=== PATIENT | female | born 1995 | race Caucasian/White ===

== ENCOUNTER 2017-07-26 12:34 | Emergency (ER) | payer MEDICAID ==
[~2017-07-26] VITALS: Ht 165.1 cm; Wt 61.4 kg
[~2017-07-26 12:34] MED LIST: CLON-528 PO; CLON0.5T23 PO; GUAI600T45 PO; HYDR-569 PO; MELA1TAB11 PO; ZOF4T PO
[2017-07-26 12:39] VITALS: BP 127/66
[2017-07-26] MEDS ORDERED: LIDOcaine 4% LTA kit 4ml solution TP ONE ×2 (14:00→14:15)
[2017-07-26] MEDS ORDERED: LIDOcaine/epinephrine TOPICAL 5 ML BTL TOP ONE (14:20)
[2017-07-26] MEDS ORDERED: acetaminophen 325mg tablet PO ONE (15:10)
== END 2017-07-26 15:36 | disposition home or self-care (01) ==
LOC: ER 12:34
DX: R04.0 Epistaxis (principal); Z88.5 Allergy status to narcotic agent; Z79.899 Other long term (current) drug therapy
CPT/HCPCS: 99283; J2001

== ENCOUNTER 2017-09-26 13:58 | Emergency (ER) | payer MEDICAID ==
[~2017-09-26] VITALS: Ht 165.1 cm; Wt 61.5 kg
[2017-09-26 14:04] VITALS: BP 113/70
[2017-09-26] MEDS ORDERED: ketorolac tromethamine 15mg/ml inj. IM ONE (14:10)
[2017-09-26] MEDS ORDERED: diazepam 5mg tablet PO ONE (14:10)
[2017-09-26] MEDS ORDERED: METH-360 PO (14:13)
[2017-09-26] MEDS ORDERED: NAPR-56 PO (14:13)
== END 2017-09-26 14:37 | disposition home or self-care (01) ==
LOC: ER 13:59
DX: S29.012A Strain of muscle and tendon of back wall of thorax, initial encounter (principal); Z88.5 Allergy status to narcotic agent; Z79.899 Other long term (current) drug therapy; X58.XXXA Exposure to other specified factors, initial encounter; Y93.89 Activity, other specified; Y92.89 Other specified places as the place of occurrence of the external cause; Y99.8 Other external cause status
CPT/HCPCS: 96372; 99283; J1885

== ENCOUNTER 2017-11-25 09:00 | Emergency (ER) | payer MEDICAID ==
[~2017-11-25] VITALS: Ht 165.1 cm; Wt 59.1 kg
[~2017-11-25 09:00] MED LIST changes: +HYDR-4383 PO; -HYDR-569 PO; +METH-360 PO
[2017-11-25] MEDS ORDERED: famotidine/PF 10 mg/ml inj IV ONE (09:55)
[2017-11-25] MEDS ORDERED: pantoprazole 40 MG vial IV ONE (09:55)
[2017-11-25] MEDS ORDERED: normal saline 1000ML IV soln IVB ONE (09:55)
[2017-11-25] MEDS ORDERED: morphine 2 MG/ML inj. syringe IV PRN (09:55)
[2017-11-25] MEDS ORDERED: ondansetron/PF 4mg/2ml inj IV ONE ×2 (09:55→12:20)
[2017-11-25 10:15] LABS: BASOPHILS % (AUTO) 0.1 % (0-1); EOSINOPHILS % (AUTO) 0.1 % (0-6); HEMATOCRIT 38.8 % (35.0-45.0); HEMOGLOBIN 13.1 g/dl (12.0-16.0); LYMPHOCYTES # (AUTO) 0.6 X10'3 (1.1-4.8); LYMPHOCYTES % (AUTO) 13.9 % (21-51); MEAN CORPUSCULAR HEMOGLOBIN 29.5 PG (27.0-31.0); MEAN CORPUSCULAR HGB CONC 33.6 % (33.0-36.5); MEAN CORPUSCULAR VOLUME 87.6 FL (78-98); MONOCYTES # (AUTO) 0.3 X10'3 (0-0.9); MONOCYTES % (AUTO) 7.3 % (2-12); NEUTROPHILS # (AUTO) 3.6 X10'3 (1.8-7.7); NEUTROPHILS % (AUTO) 78.6 % (42-75); PLATELET COUNT 223 X10'3 (140-440); RED BLOOD COUNT 4.43 X10'6 (4.20-5.60); RED CELL DISTRIBUTION WIDTH 11.8 % (11.5-14.5); WHITE BLOOD COUNT 4.5 X10'3 (4.5-11.0)
[2017-11-25 10:34] LABS: INR 1.1 INR; PROTHROMBIN TIME 11.7 SECONDS (9.0-12.0)
[2017-11-25 10:41] LABS: ALANINE AMINOTRANSFERASE 18 U/L (12-78); ALBUMIN 3.3 G/DL (3.4-5.0); ALBUMIN/GLOBULIN RATIO 1.1 (1.1-1.5); ALKALINE PHOSPHATASE 62 IU/L (46-116); ANION GAP 9 (8-16); ASPARTATE AMINO TRANSFERASE 15 U/L (10-37); BILIRUBIN,TOTAL 0.5 MG/DL (0.1-1.0); BLOOD UREA NITROGEN 11 MG/DL (7-18); BUN/CREATININE RATIO 15.9 (6.6-38.0); CALCIUM 8.4 MG/DL (8.5-10.1); CHLORIDE 105 MMOL/L (99-107); CREATININE 0.69 MG/DL (0.40-0.90); GLUCOSE 87 MG/DL (70-104); POTASSIUM 3.7 MMOL/L (3.5-5.1); SODIUM 140 MMOL/L (135-145); TOTAL CARBON DIOXIDE 26.1 MMOL/L (24-32); TOTAL PROTEIN 6.4 G/DL (6.4-8.2); eGFR > 90 ML/MIN
[2017-11-25 11:44] LABS: URINE HCG NEGATIVE (NEG)
[2017-11-25 11:57] LABS: CLARITY,URINE CLEAR (Clear); COLOR,URINE YELLOW (Yellow); GLUCOSE, URINE NEGATIVE (Neg); KETONES,URINE NEGATIVE (Neg); LEUKOCYTE ESTERASE ,URINE NEGATIVE (Neg); NITRITES, URINE NEGATIVE (Neg); OCCULT BLOOD,URINE NEGATIVE (Neg); PH,URINE 6.5 (4.8-8.0); PROTEIN,URINE NEGATIVE (Neg); UROBILINOGEN,URINE 0.2 E.U/dL (0.2-1.0)
[2017-11-25 11:58] LABS: UA COLLECTION TYPE CLN CATCH MIDSTREAM
[2017-11-25] MEDS ORDERED: PANT-47 PO (12:16)
[2017-11-25] MEDS ORDERED: ONDA8TAB13 PO (12:16)
[2017-11-25 12:30] VITALS: BP 119/57
[2017-11-25] MEDS ORDERED: SUCR1TAB34 PO (22:40)
== END 2017-11-25 12:31 | disposition home or self-care (01) ==
LOC: ER 09:01
DX: R10.13 Epigastric pain (principal); R11.2 Nausea with vomiting, unspecified; Z88.5 Allergy status to narcotic agent; Z79.899 Other long term (current) drug therapy
CPT/HCPCS: 36415; 80053; 81003; 81025; 85025; 85610; 96361; 96374; 96375; 96376; 99284; C9113; J2405; J3490; J2270

== ENCOUNTER 2017-11-25 21:43 | Emergency (ER) | payer MEDICAID ==
[~2017-11-25] VITALS: Ht 165.1 cm; Wt 60.6 kg
[~2017-11-25 21:43] MED LIST changes: +ONDA8TAB13 PO; +PANT-47 PO
[2017-11-25 21:49] VITALS: BP 110/68
[2017-11-25] MEDS ORDERED: LIDOcaine Viscous 15ml cup MM PRN (22:00)
[2017-11-25] MEDS ORDERED: famotidine/PF 10 mg/ml inj IV ONE (22:00)
[2017-11-25] MEDS ORDERED: mag hydrox/Alum hydrox/simeth 30ml oral suspension PO ONE (22:00)
[2017-11-25 22:09] LABS: BASOPHILS % (AUTO) 0.2 % (0-1); EOSINOPHILS # (AUTO) 0.1 X10'3 (0-0.9); EOSINOPHILS % (AUTO) 1.1 % (0-6); HEMATOCRIT 39.3 % (35.0-45.0); HEMOGLOBIN 13.3 g/dl (12.0-16.0); LYMPHOCYTES # (AUTO) 1.6 X10'3 (1.1-4.8); LYMPHOCYTES % (AUTO) 29.8 % (21-51); MEAN CORPUSCULAR HEMOGLOBIN 29.8 PG (27.0-31.0); MEAN CORPUSCULAR HGB CONC 33.9 % (33.0-36.5); MEAN CORPUSCULAR VOLUME 87.8 FL (78-98); MEAN PLATELET VOLUME 7.6 FL (7.4-10.4); MONOCYTES # (AUTO) 0.5 X10'3 (0-0.9); MONOCYTES % (AUTO) 8.5 % (2-12); NEUTROPHILS # (AUTO) 3.3 X10'3 (1.8-7.7); NEUTROPHILS % (AUTO) 60.4 % (42-75); PLATELET COUNT 278 X10'3 (140-440); RED BLOOD COUNT 4.48 X10'6 (4.20-5.60); RED CELL DISTRIBUTION WIDTH 11.8 % (11.5-14.5); WHITE BLOOD COUNT 5.4 X10'3 (4.5-11.0)
[2017-11-25 22:25] LABS: ALANINE AMINOTRANSFERASE 21 U/L (12-78); ALBUMIN 3.5 G/DL (3.4-5.0); ALBUMIN/GLOBULIN RATIO 1.1 (1.1-1.5); ALKALINE PHOSPHATASE 77 IU/L (46-116); ANION GAP 8 (8-16); ASPARTATE AMINO TRANSFERASE 18 U/L (10-37); BILIRUBIN,TOTAL 0.4 MG/DL (0.1-1.0); BLOOD UREA NITROGEN 7 MG/DL (7-18); CALCIUM 8.6 MG/DL (8.5-10.1); CHLORIDE 105 MMOL/L (99-107); CREATININE 0.78 MG/DL (0.40-0.90); GLUCOSE 83 MG/DL (70-104); LIPASE 146 U/L (73-393); POTASSIUM 3.7 MMOL/L (3.5-5.1); SODIUM 140 MMOL/L (135-145); TOTAL PROTEIN 6.6 G/DL (6.4-8.2); eGFR > 90 ML/MIN
[2017-11-25] MEDS ORDERED: SUCR1TAB34 PO (22:40)
== END 2017-11-25 22:50 | disposition home or self-care (01) ==
LOC: ER 21:43
DX: K29.00 Acute gastritis without bleeding (principal); Z88.6 Allergy status to analgesic agent; Z79.899 Other long term (current) drug therapy; Z87.11 Personal history of peptic ulcer disease
CPT/HCPCS: 36415; 80053; 83690; 85025; 96374; 99284; J3490

== ENCOUNTER 2018-01-06 22:59 | Emergency (ER) | payer MEDICAID ==
[~2018-01-06] VITALS: Ht 165.1 cm; Wt 59.7 kg
[~2018-01-06 22:59] MED LIST changes: +SUCR1TAB34 PO
[2018-01-06] MEDS ORDERED: dexamethasone sod phosphate 10mg/ml inj PO STA (23:24)
[2018-01-06] MEDS ORDERED: ondansetron 4mg rapidly disintigrating tab PO ONE (23:25)
[2018-01-06] MEDS ORDERED: acetaminophen 325mg tablet PO ONE (23:35)
[2018-01-06] MEDS ORDERED: PRED20TA PO (23:42)
[2018-01-06 23:56] VITALS: BP 117/72
[2018-01-07 00:10] LABS: MONOTEST NEGATIVE (Neg)
== END 2018-01-07 00:35 | disposition home or self-care (01) ==
LOC: ER 22:59
DX: J03.90 Acute tonsillitis, unspecified (principal); R00.0 Tachycardia, unspecified; K08.89 Other specified disorders of teeth and supporting structures; Z88.6 Allergy status to analgesic agent; Z79.899 Other long term (current) drug therapy; Z87.440 Personal history of urinary (tract) infections; Z87.11 Personal history of peptic ulcer disease
CPT/HCPCS: 36415; 86308; 99284; J1100

== ENCOUNTER 2018-02-01 22:39 | Emergency (ER) | payer MEDICAID ==
[~2018-02-01] VITALS: Ht 165.1 cm; Wt 59.6 kg
[~2018-02-01 22:39] MED LIST changes: +PRED20TA PO
[2018-02-01 22:52] VITALS: BP 101/70
[2018-02-01] MEDS ORDERED: tranexamic acid 100mg/ml inj. TP ONE (23:15)
[2018-02-01] MEDS ORDERED: oxymetazoline 15 ML nasal spray NS ONE (23:15)
--- NOTE | 2018-02-01 23:48 | NUR ---
BLEEDING CONTROLLED UPON DISCHARGE
== END 2018-02-01 23:49 | disposition home or self-care (01) ==
LOC: ER 22:40
DX: R04.0 Epistaxis (principal); Z88.5 Allergy status to narcotic agent; Z79.899 Other long term (current) drug therapy
CPT/HCPCS: 99283

== ENCOUNTER 2018-05-26 07:44 | Emergency (ER) | payer MEDICAID ==
[~2018-05-26] VITALS: Ht 165.1 cm; Wt 63.3 kg
[~2018-05-26 07:44] MED LIST changes: -PRED20TA PO
[2018-05-26 07:52] VITALS: BP 105/65
--- NOTE | 2018-05-26 08:41 | NUR ---
Pt not in room. Called registration who confirmed that the pt left ED. Pt was ready for discharge at time she left.
== END 2018-05-26 08:48 | disposition home or self-care (01) ==
LOC: ER 07:44
DX: R04.0 Epistaxis (principal); Z88.0 Allergy status to penicillin; Z88.5 Allergy status to narcotic agent; Z79.899 Other long term (current) drug therapy
CPT/HCPCS: 99284

== ENCOUNTER 2018-05-30 12:22 | Emergency (ER) | payer MEDICAID ==
[~2018-05-30] VITALS: Ht 165.1 cm; Wt 62.7 kg
[2018-05-30] MEDS ORDERED: mupirocin 2% ointment 22GM TP ONE (13:20)
[2018-05-30] MEDS ORDERED: ibuprofen tablet 400 MG TABLET PO ONE (13:30)
[2018-05-30] MEDS ORDERED: ibuprofen 200mg tablet PO ONE (13:35)
[2018-05-30 13:47] VITALS: BP 117/67
== END 2018-05-30 13:49 | disposition home or self-care (01) ==
LOC: ER 12:23
DX: S80.12XA Contusion of left lower leg, initial encounter (principal); S40.812A Abrasion of left upper arm, initial encounter; M54.2 Cervicalgia; F17.210 Nicotine dependence, cigarettes, uncomplicated; V09.9XXA Pedestrian injured in unspecified transport accident, initial encounter; Y93.89 Activity, other specified; Y92.488 Other paved roadways as the place of occurrence of the external cause; Y99.8 Other external cause status
CPT/HCPCS: 73590; 99283